=== PATIENT | male | born 1960 | race Caucasian/White ===

== ENCOUNTER → 2016-08-31 | Outpatient (CLI) | payer OTHER ==
--- NOTE | ~2016-08-31 | EXE ---
[facility] [place] [address] STRESS ECHOCARDIOGRAM Name: LILIAMMIGUELINA FARRELLN Room #: REG CandidoJeanieLuisana#: [id number] Admission: 08/31/16 Attend Phys: Rafi Yen, Discharge: Date of : 56 Date of Service: 08/31/161933 Report #: [id number] THIS REPORT FOR: //name// APPROVED REPORT Exam: Stress Echocardiogram Indication: Positive calcium score scan Patient Location: Out-Patient Stress Nurse: Lenore Gomez RN Status: routine HR: 58 bpm Medical History Allergies: No known drug allergies Cardiac Risk Factors: HTN, Hyperlipidemia Procedure The patient underwent an Exercise Stress Test using the Jossue Protocol. Blood pressure, heart rate, and EKG were monitored. An Echocardiogram was performed by pest technician in four stages in quad fashion. At peak stress, four selected images were obtained and placed side by side with resting images for comparison. Stress Test Details Stress Test: Exercise stress testing was performed using a Jossue protocol. HR Resting HR: 58 bpm Max Heart Rate (APMHR): 163 bpm Max HR Achieved: 162 bpm Target HR (85% APMHR): 138 bpm % of APMHR: 99 Recovery HR: 79 bpm HR response to stress: Normal HR response to stress BP Resting BP: 161/86 mmHg Max BP: 200/82 mmHg Recovery BP: 142/76 mmHg ECG Resting ECG: Sinus Rhythm Stress ECG: Sinus Tachycardia Arrhythmia: None Recovery ECG: Sinus Rhythm [facility] [address] [place] [address] STRESS ECHOCARDIOGRAM Name: MIGUELINA RICKETTSN Room #: REG [facility]#: [id number] Admission: 08/31/16 Attend Phys: Rafi Yen, Discharge: Date of : 56 Date of Service: 08/31/161933 Report #: [id number] Clinical Reason for Termination: Moderate fatigue Exercise duration: 10 min 30 sec Exercise capacity: 13.4 METs Stress ECG Conclusion 1. SUBJECTIVELY NEGATIVE FOR ISCHEMIA 2. ELECTROCARDIOGRAPHICALLY NEGATIVE FOR ISCHEMIA Pre-Stress Echo The resting Echocardiogram showed normal left ventricular contractility with an estimated Ejection Fraction of about 55-60%. Mild MR, trivial TR, AI. Normal wall motion in all segments on baseline images. Post-Stress Echo The stress Echocardiogram showed normal left ventricular contractility with an estimated Ejection Fraction of about 65%. Normal augmentation of wall motion in all segments on post stress images. Clinical No clinical or ECG evidence for ischemia. Conclusion Clinical Response: Non-ischemic Exercise Capacity: Superior Stress ECG Response: Non-ischemic Stress Echo Images: Non-ischemic 1. LOW RISK STUDY Other Information Study Quality: Adequate <Conclusion> 1. LOW RISK STUDY <ELECTRONICALLY SIGNED> By: Mike Murrieta MD 08/31/161933 33 33 Mike Murrieta MD /INF
== END ==
LOC: CV 08:20
DX: R93.1 Abnormal findings on diagnostic imaging of heart and coronary circulation (principal)